=== PATIENT | male | born 1970 | race Caucasian/White ===

== ENCOUNTER 2018-07-26 06:31 | Emergency (ER) | END 2018-07-26 07:48 | disposition home or self-care (01) | DX: F41.9 Anxiety disorder, unspecified (principal); R68.84 Jaw pain; R05 Cough ==

== ENCOUNTER 2018-08-01 01:00 | Emergency (ER) | payer BC ==
[~2018-08-01] VITALS: Ht 170.2 cm; Wt 74.8 kg
[~2018-08-01 01:00] MED LIST: CLON0.1T14 PO; DIPH50CA37 PO; HYDR-3895 PO
--- NOTE | 2018-08-01 01:54 | NUR ---
DR. MCCRACKEN AT BEDSIDE FOR MSE.
[2018-08-01] MEDS ORDERED: LORAZEPAM 1 MG TABLET ONE (02:44)
[2018-08-01] MEDS ORDERED: LORAZEPAM 0.5 MG TABLET PO ONE (02:45)
[2018-08-01 02:47] VITALS: BP 110/68
--- NOTE | 2018-08-01 02:47 | NUR ---
Patient discharged to home in stable conditon. Written and verbal after care instructions given. Patient verbalizes understanding of instructions. PATIENT LEFT WITH STABLE GAIT.
== END 2018-08-01 02:48 | disposition home or self-care (01) ==
LOC: ER 02:06
DX: J06.9 Acute upper respiratory infection, unspecified (principal); Z79.899 Other long term (current) drug therapy
CPT/HCPCS: 71250; A4663

== ENCOUNTER 2018-08-25 21:56 | Inpatient (IN) | payer BC, OTHER ==
[~2018-08-25] VITALS: Ht 170.2 cm; Wt 68.0 kg
--- NOTE | 2018-08-26 17:30 | NUR ---
Preassessment Note: Pt seen in intake office. Pt states he is here because he needs help from ETOH withdrawal and hx of intermittent Amphetamine use. Pt is moderately intoxicated, appears disheveled, unwilling to make eye contact, mumbles when talking. Pt is avoidant but is able to answer questions when prompted multiple times. BP:122/87, HR:102, RR:16, T:98.3, SpO2:100%, Pain:10/10. Policies and procedures explained to pt. Pt verbalized understanding. Will admit pt to [facility].
--- NOTE | 2018-08-26 17:50 | NUR ---
ADMISSION NOTE Patient is 47 year old male who is being admitted for medically supervised withdrawal from ETOH and with history of Amphetamine abuse. Patient is intoxicated and currently not experiencing withdrawal. Patient appears unkempt, flat facial expressions, poor eye contact, odor of alcohol. Patient reported PMH of anxiety, ADHD. Patient denies any history of seizures or any cardiac complications. He has NKA is full code status, and following regular diet at home. Patient reported that he lost 20 pounds since his last admission without even trying. Height-5'7, Weight-150Ibs. He doesn't have any PCP and reports he has a psychiatrist but unable to remember his name. He is a non smoker. Upon admission process skin assessment done, Noted with lower abdomen rash, and lower neck abrasion, picture taken and placed in the chart. Patient is alert oriented x4, breathing normal no SOB noted. Respiration even non labored. Patient denies any pain. Patient denies any history of SI/HI. Patient refused FLU and PNA vaccine, education provided about refused of the vaccines. WITHDRAWAL SIGNS Patient reported his withdrawals s/s as: Anxiety, Panic attack, racing thoughts, palpitation,sweats. SUBSTANCE USE HISTORY 1.ETOH(VODKA)- Patient has been drinking 250ml to 750ml daily for the past 1.5months. last used was 08/26/18 2 shots of vodka(88mL). He first started drinking vodka at age 21. 2.ATIVAN- Patient has been using 0.5mg daily since last week. He reports" He was admitted to ER for panic attack and has 10 pills of Ativan from ER as a prescription". Patient has been taking 0.5mg intermittently. Last used was on 08/19/18. Patient states Ativan makes him crave for ETOH. 3.AMPHETAMINE- Patient has been using intermittently, but unwilling to report the dose and last used. PSYCHIATRIC COMPLICATIONS Patient reports he has a history of 5150 25 years ago and history of SI/HI, but denies any active ideation or plan. SOBRIETY HISTORY He reports his longest periods of sobriety is 10 year, which was ended up last year. TREATMENT HISTORY 1. [facility] on 07/01/18, [facility], went to treatment and left on the same day and relapsed. MOTIVATION He reports he hasn't seen his son in 6.5 months, and sent here by a program. He reports "He really wants to see his son and i want to do anything". He reports his and he lives alone and he has no support system. He reports he wants to go to after care outpatient in [place] and wants to be able to live with his son. Patient was educated on plan of care including detox, group and medications and discharge planning. Patient was encouraged to be open and honest in his communication. has been notified about his admission. All safety measures in place. Will cont with plan of care.
[2018-08-26] MEDS ORDERED: LOPERAMIDE HCL 2 MG CAPSULE PO PRN ×2 (18:30)
[2018-08-26] MEDS ORDERED: CLONIDINE HCL 0.1 MG TABLET PO PRN (18:30)
[2018-08-26] MEDS ORDERED: MIRALAX 17 GM POWD.PACK PO PRN (18:30)
[2018-08-26] MEDS ORDERED: ONDANSETRON 4 MG/2 ML VIAL IM PRN (18:30)
[2018-08-26] MEDS ORDERED: HYDROXYZINE PAMOATE 25 MG CAPSULE PO PRN (18:30)
[2018-08-26] MEDS ORDERED: THIAMINE HCL 200 MG/2 ML VIAL IM ONE (18:30)
[2018-08-26] MEDS ORDERED: IBUPROFEN 600 MG TABLET PO PRN (18:30)
[2018-08-26] MEDS ORDERED: ONDANSETRON ODT 4 MG TAB.RAPDIS SL PRN (18:30)
[2018-08-26] MEDS ORDERED: MAG HYDROX/AL HYDROX/SIMETH 30 ML LIQUID UDC PO PRN (18:30)
[2018-08-26] MEDS ORDERED: DIAZEPAM 5 MG TABLET PO PRN (18:30)
[2018-08-26] MEDS ORDERED: ACETAMINOPHEN 325 MG TABLET PO PRN (18:30)
[2018-08-26] MEDS ORDERED: MAGNESIUM HYDROXIDE 30 ML LIQUID UDC PO PRN (18:30)
[2018-08-26] MEDS ORDERED: DIAZEPAM 10 MG TABLET PO PRN (18:30)
[2018-08-26] MEDS ORDERED: diphenhydrAMINE 50 MG CAPSULE PO PRN (18:30)
--- NOTE | 2018-08-26 19:00 | NUR ---
Start of Shift Received 47 year old male patient admitted 08/26/18 to [facility] for medically supervised withdrawal from ETOH and Benzodiazepines. Pt not currently on a taper, but has PRN medications available for S/S of withdrawal. Pt received no PRN medications on day shift. Last CIWA deferred R/T intoxication. Pt currently in bed resting with eyes closed. Respirations are even and unlabored. Bed is low, side rails up x 2, and call heart in reach. Will continue to monitor.
[2018-08-26 19:15] LABS: BASOPHILS # (AUTO) 0.1 K/uL (0.0-8.0); BASOPHILS % (AUTO) 1.2 % (0.0-2.0); EOSINOPHILS # (AUTO) 0.1 K/uL (0.0-0.7); HEMATOCRIT 42.6 % (36.7-47.1); HEMOGLOBIN 14.1 g/dL (12.5-16.3); LYMPHOCYTES # (AUTO) 1.9 K/uL (20.0-40.0); LYMPHOCYTES % (AUTO) 33.2 % (20.5-51.5); MEAN CORPUSCULAR HEMOGLOBIN 30.2 uug (23.8-33.4); MEAN CORPUSCULAR HGB CONC 33 g/dL (32.5-36.3); MEAN CORPUSCULAR VOLUME 91.1 fL (73.0-96.2); MONOCYTES # (AUTO) 0.5 K/uL (2.0-10.0); MONOCYTES % (AUTO) 8.3 % (0.0-11.0); NEUTROPHILS # (AUTO) 3.1 K/uL (1.8-8.9); NEUTROPHILS % (AUTO) 55.3 % (38.5-71.5); PLATELET COUNT (AUTO) 235 K/uL (152-348); RED BLOOD CELL COUNT(AUTO) 4.68 MIL/uL (4.06-5.63); WHITE BLOOD COUNT (AUTO) 5.6 K/uL (3.6-10.2)
[2018-08-26 19:22] LABS: BILIRUBIN,TOTAL 0.5 mg/dL (0.2-1.0); CREATININE 0.9 mg/dL (0.6-1.3); POTASSIUM 3.3 mmol/L (3.5-5.1); TOTAL PROTEIN, SERUM 7.2 g/dL (6.4-8.2)
[2018-08-26 19:32] LABS: THYROID STIMULATING HORMONE 1.398 mIU/mL (0.358-3.740)
--- NOTE | 2018-08-26 19:46 | NUR ---
END OF SHIFT NOTE Patient is newly admitted for ETOH withdrawal. Patient currently resting in his bed and able to eat 50%of his dinner. Encouraged PO fluids as tolerated. Vital signs WNL. Patient denies any SI/HI. All safety measures in place. Endorse patient to night nurse in stable condition.
[2018-08-26 20:00] VITALS: BP 87/54
[2018-08-26 20:30] VITALS: BP 117/66
--- NOTE | 2018-08-26 20:30 | NUR ---
Nurse Note Initial VS: BP 87/54, HR 100, RR 16, T 98.5, and O2 Sat 96% RA. Pt denied adverse effects. Encouraged fluids. Reassessed after 1/2 hour and BP 117/66, and HR 92. Continue to monitor.
[2018-08-26] MEDS ORDERED: POTASSIUM CHLORIDE 20 MEQ TAB.PRT.SR PO ONE (21:00)
[2018-08-27] VITALS: BP 121/80
[2018-08-27] MEDS: DIAZEPAM 10 MG TABLET PO PRN ×3 (00:10→11:47)
--- NOTE | 2018-08-27 00:10 | NUR ---
PRN Valium Pt awoke and UDS obtained, sent, and results are pending. CIWA 12 Valium 10 mg given per order. Will monitor effect.
[2018-08-27 00:31] LABS: *AMPHETAMINE, URINE POSITIVE (NEGATIVE); *BARBITURATE, URINE NEGATIVE (NEGATIVE); *CANNABINOID, URINE NEGATIVE (NEGATIVE); *COCCAINE, URINE NEGATIVE (NEGATIVE); *OPIATE, URINE NEGATIVE (NEGATIVE); *PHENCYCLIDINE SCREEN,URINE NEGATIVE (NEGATIVE)
--- NOTE | 2018-08-27 01:10 | NUR ---
Reassess PRN Valium/ CIWA deferred Medication effective. Pt resting with eyes closed. Respirations are even and unlabored. Will continue to monitor.
[2018-08-27 04:00] VITALS: BP 118/60
--- NOTE | 2018-08-27 04:14 | NUR ---
PRN Valium/CIWA 12 Pt awakened for vitals. c/o anxiety and irritable. Pt states, "I need that med for withdrawal. Gross tremors and sweating noted. CIWA 12. Valium 10 mg given per order. Will monitor effect.
--- NOTE | 2018-08-27 05:14 | NUR ---
Reassess PRN Valium/ CIWA deferred Medication effective. Pt resting with eyes closed. Respirations are even and unlabored. Will continue to monitor.
[2018-08-27] MEDS ORDERED: 3 DAY TAPER OF VALIUM-SERENITY PROTOCOL PO PRN (06:00)
--- NOTE | 2018-08-27 06:38 | NUR ---
End of Shift Endorsing 47 year old male patient admitted 08/26/18 to [facility] for medically supervised withdrawal from ETOH and Benzodiazepines. Pt not currently on a taper, but has PRN medications available for S/S of withdrawal. Pt received PRN Valium 10 mg x 2 on film processing shift supervisor. Last CIWA 12@0400. Pt in bed resting with eyes closed. Respirations are even and unlabored. Bed is low, side rails up x 2, and call heart in reach. PO intake 500 ml, voided x 1, BM x 0, and slept 8 hours.
--- NOTE | 2018-08-27 07:40 | NUR ---
START OF SHIFT Received report from hourly shift manager nurse. Pt is lying in bed resting and easily arousable. He is a 47 yo male admitted to [facility] on 08/26 for ETOH withdrawal and intermittent BZD use. He is A&O and ambulatory with a steady gait. 3 Day Valium taper starts today for the management of withdrawal symptoms. He was administered PRN Valium 10mg x2 on hourly shift manager. Last CIWA was 12 and he slept for 8 hours. This morning he is anxious, restless in bed, with a headache, tingling in the legs, and sweating. He appears tired and disheveled. He is pre-occupied with a parenting class that he is missing. Provided support and encouragement. Safety measures in place.
[2018-08-27 08:00] VITALS: BP 94/67
[2018-08-27] MEDS: FOLIC ACID 1 MG TABLET PO SCH (08:52)
[2018-08-27] MEDS: THIAMINE HCL 100 MG TABLET PO SCH (08:53)
[2018-08-27] MEDS: MULTIVITAMINS,THERAPEUTIC TABLET PO SCH (08:53)
[2018-08-27] MEDS: DIAZEPAM 5 MG TABLET PO SCH ×3 (08:54→21:11)
--- NOTE | 2018-08-27 08:55 | NUR ---
PRN Motrin Pt reports headache 01/07. PRN Motrin administered.
[2018-08-27] MEDS ORDERED: TUBERCULIN,PURIF.PROT.DERIV. 5 TU/0.1 ML TEST ID ONE (09:00)
--- NOTE | 2018-08-27 10:00 | NUR ---
PRN Motrin reassessment PRN Motrin effective. Pt reports headache is relieved.
--- NOTE | 2018-08-27 11:51 | NUR ---
PRN Valium Pt is anxious and restless with moderate tremors. He is flushed with moist skin. He is observed with dark circles under the eyes and a disheveled appearance. CIWA score 14. PRN Valium administered.
[2018-08-27 12:00] VITALS: BP 113/62
--- NOTE | 2018-08-27 13:00 | NUR ---
PRN Valium reassessment PRN Valium effective. Pt is more relaxed in bed and less restless. CIWA score 8.
[2018-08-27] MEDS: PANTOPRAZOLE SODIUM 40 MG TABLET.DR PO SCH (13:57)
--- NOTE | 2018-08-27 14:02 | NUR ---
PRN Miralax Pt c/o difficulty having a bowel movement. Encourage fluids. PRN Miralax administered.
[2018-08-27 16:00] VITALS: BP 124/82
--- NOTE | 2018-08-27 19:13 | NUR ---
END OF SHIFT Report provided to hourly shift manager nurse. Pt is lying in bed watching TV. He is a 47 yo male admitted to [facility] on 08/26 for ETOH withdrawal and intermittent BZD use. He is A&O and ambulatory with a steady gait. He started a 3 day Valium taper today. Pt is fatigued with a depressed mood and lack of energy. He denies SI/HI. He spent most of the day in bed. He is anxious with restless legs. His facial expression is strained. He is preoccupied with discharging earlier than he is scheduled. Pt was educated regarding the treatment plan. Provided support and encouragement. PRN Motrin administered for headache and was effective. Pt was also started on Protonix for reports if acid reflux. PRN Miralax administered with no bowel movement yet. He did not attend any group meetings. Last CIWA was 9 and he drank 2306mL. Safety measures in place.
[2018-08-27 20:00] VITALS: BP 115/67
--- NOTE | 2018-08-27 20:00 | NUR ---
Start of Shift Patient noted to have hypoactive body movements. He is anxious and he verbalized feeling "a little tired today". Patient is observed to be unkempt, disheveled and he c/o intermittent nausea and bloating. Patient was educated regarding new medication Protonix. Patient also c/o headache=2/10 at this time. Also, patient has bilateral hand tremors noted. Patient also c/o sweating, intermittent restless legs and appears flushed. He is also observed to be avoidant with conversation at this time. Fall, universal, seizure and safety prec in place. Call light within reach. Last CIWA=9. Will continue to monitor.
--- NOTE | 2018-08-28 | NUR ---
CIWA and Vital Signs deferred Patient asleep on bed, with no SOB nor facial grimacing noted. CIWA deferred per MD order. RR=14.
--- NOTE | 2018-08-28 04:00 | NUR ---
CIWA and Vital Signs deferred Patient asleep on bed, with no SOB nor facial grimacing noted. CIWA deferred per MD order. RR=14.
[2018-08-28] MEDS: PANTOPRAZOLE SODIUM 40 MG TABLET.DR PO SCH (06:10)
[2018-08-28 07:06] LABS: HEPATITIS B SURFACE AG Negative (Negative)
--- NOTE | 2018-08-28 07:22 | NUR ---
End of Shift Patient continues to c/o "feeling tired", is noted to have hypoactive bowel movements and verbalized having intermittent anxiety and nausea throughout the shift. He also stated that he experiences tingling sensations of bilateral hands at times. He is observed to have bilateral hand tremors. He continues to appear flushed, disheveled, unkempt and has dirty fingernails. He also has pieces of candy wrappers scattered on the side counter of his bed. Encouraged patient to take a shower this morning and was educated regarding the importance of maintaining a proper hygiene. 2nd day of 3-day Valium taper starts today. Fall, universal, seizure and safety prec in place. Call light within reach. Last CIWA=9 and slept for 9 hours. Endorsed to AM shift nurse for continuity of care.
[2018-08-28 08:00] VITALS: BP 123/83
--- NOTE | 2018-08-28 08:15 | NUR ---
START OF SHIFT: Received pt A/O X 4. He presents with irritable mood and congruent affect. He reports anxiety ,restlessness,night sweats and agitation. he states he slept well last night and is eating better. NATHANIEL 8 . Encouraged group attendance to improve coping skills and prevent relapse. Will continue to monitor and offer support.
[2018-08-28] MEDS ORDERED: DIAZEPAM 5 MG TABLET PO SCH (09:00)
[2018-08-28] MEDS: MULTIVITAMINS,THERAPEUTIC TABLET PO SCH (09:05)
[2018-08-28] MEDS: FOLIC ACID 1 MG TABLET PO SCH (09:05)
[2018-08-28] MEDS: THIAMINE HCL 100 MG TABLET PO SCH (09:06)
--- NOTE | 2018-08-28 09:41 | NUR ---
Therapist prompted client to attend group therapy.
--- NOTE | 2018-08-28 11:36 | NUR ---
Pt states he wants to leave AMA. Multidisciplinary staff intervened. Will continue to monitor.
--- NOTE | 2018-08-28 12:50 | NUR ---
DISCHARGE AMA: Pt is A/O X 4. He denies S/I and H/I.He refused V/S. Despite intervention from multiple staff members pt left facility AMA. Belongings returned. A list of resources provided. Pt was escorted out of facility by [employer] at [id number].
[2018-08-29] MEDS ORDERED: DIAZEPAM 5 MG TABLET PO SCH (09:00)
== END 2018-08-28 12:37 | disposition left against medical advice (07) | DRG 894 ==
LOC: SRC 08-26 17:14
PROVIDERS: ADMIT Internal Medicine Addiction Medicine; ATTEND Internal Medicine Addiction Medicine
PROC: HZ2ZZZZ Detoxification Services for Substance Abuse Treatment (ICD-10-PCS; principal; 2018-08-26)
DX: F10.230 Alcohol dependence with withdrawal, uncomplicated (principal); F13.230 Sedative, hypnotic or anxiolytic dependence with withdrawal, uncomplicated; Y90.6 Blood alcohol level of 120-199 mg/100 ml; F90.9 Attention-deficit hyperactivity disorder, unspecified type; F41.1 Generalized anxiety disorder; Z81.1 Family history of alcohol abuse and dependence; Z65.3 Problems related to other legal circumstances; J45.909 Unspecified asthma, uncomplicated; F15.90 Other stimulant use, unspecified, uncomplicated
CPT/HCPCS: 36415; 80307; 80324; 80346; 83690; 83735; 84443; 85025; 86592; 86705; 86803; 87340; 87806; G0480; J3411

== ENCOUNTER 2018-09-26 04:17 | Emergency (ER) | payer BC, OTHER ==
[~2018-09-26] VITALS: Ht 170.2 cm; Wt 68.0 kg
--- NOTE | 2018-09-26 04:28 | NUR ---
Dr. Ayala at bedside for MSE.
--- NOTE | 2018-09-26 04:46 | NUR ---
Patient discharged to home in stable conditon. Written and verbal after care instructions given. Patient verbalizes understanding of instructions. Pt refused to sign discharge aftercare instructions, states he doesn't want to leave the hospital, security notified for assistance. Security at bedside.
--- NOTE | 2018-09-26 04:50 | NUR ---
Pt out of ER with steady gait, escorted by security.
[2018-09-26 05:04] VITALS: BP 115/83
== END 2018-09-26 05:04 | disposition home or self-care (01) ==
LOC: ER 04:20
DX: L25.9 Unspecified contact dermatitis, unspecified cause (principal); Z79.899 Other long term (current) drug therapy
CPT/HCPCS: A4663